=== PATIENT | female | born 1985 | race Caucasian/White ===

== ENCOUNTER 2019-08-01 19:27 | Emergency (ER) | payer BC, OTHER ==
--- NOTE | 2019-08-01 20:14 | EDM.PDOC ---
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 So far has been uncomplicated - she states she had an normal early ultrasound, and also a normal bedside u/s at 10 weeks. This evening she noticed blood in her underwear when she got home from work around an hour ago. Doesn't know if she's continued to bleed. No cramping. No provoking factor. No trauma. Otherwise feels well. No prior bleeding in this . - Related Data Allergies Allergy/AdvReac Type Severity Reaction Status Date / Time No Known Allergies Allergy Verified 08/01/19 19:36 Home Meds: Home Meds . [No Known Home Meds] 08/01/19 [History] Past Medical History - Past Health History Medical/Surgical History: Denies Medical/Surgical History - Past Surgical History HEENT Surgical History: Reports: Tonsillectomy Social & Family History - Family History Family Medical History: Noncontributory - Tobacco Use Smoking Status *Q: Never Smoker - Caffeine Use Caffeine Use: Reports: Soda - Recreational Drug Use Recreational Drug Use: No ED ROS GENERAL - Review of Systems Review Of Systems: See Below Constitutional: Denies: Fever HEENT: Reports: No Symptoms Respiratory: Denies: Shortness of Breath Cardiovascular: Denies: Chest Pain Endocrine: Reports: No Symptoms GI/Abdominal: Denies: Abdominal Pain : Denies: Dysuria Musculoskeletal: Reports: No Symptoms Skin: Reports: No Symptoms Neurological: Reports: No Symptoms Psychiatric: Reports: No Symptoms ED EXAM - Physical Exam Exam: See Below Exam Limited By: No Limitations General Appearance: Alert, WD/WN, No Apparent Distress Eye Exam: Bilateral Eye: Normal Inspection Ears: Normal External Exam Nose: Normal Inspection Throat/Mouth: Normal Inspection, Normal Oropharynx, Normal Voice Head: Atraumatic, Normocephalic Neck: Normal Inspection Respiratory/Chest: No Respiratory Distress, Lungs Clear, Normal Breath Sounds Cardiovascular: Normal Peripheral Pulses, Regular Rate, Rhythm GI/Abdominal Exam: Soft, Non-Tender, No Distention. No: Rebound (Female) Exam: Vaginal Bleeding, Other (cervix closed, small amount of dark blood in the vault, no active bleeding ). No: Cervical Dilatation Heart Tones: Present Heart Tones per Min: 164 Back Exam: Normal Inspection Extremities: Normal Inspection Neurological: Alert, Oriented, Normal Cognition Psychiatric: Normal Affect, Normal Mood Skin Exam: Warm, Dry, Intact, Normal Color, No Rash Course - Vital Signs Last Recorded V/S: Last Vital Signs Temp 36.9 C 08/01/19 19:34 Pulse 76 08/01/19 19:34 Resp 16 08/01/19 19:34 BP 136/77 08/01/19 19:34 Pulse Ox 96 08/01/19 19:34 - Orders/Labs/Meds Orders: Active Orders 24 hr Category Date Time Status Pelvic Exam, Set Up [RC] ASDIRECTED Care 08/01/19 20:05 Active PATIENT RETYPE [BBK] Routine Lab 08/01/19 21:24 Ordered Labs: Laboratory Tests 08/01/19 08/01/19 08/01/19 Range/Units 20:12 20:12 20:12 WBC 9.18 (3.98-10.04) K/mm3 RBC 4.02 (3.98-5.22) M/mm3 Hgb 11.0 L (11.2-15.7) gm/dl Hct 32.5 L (34.1-44.9) % MCV 80.8 (79.4-94.8) fl MCH 27.4 (25.6-32.2) pg MCHC 33.8 (32.2-35.5) g/dl RDW Std Deviation 45.1 (36.4-46.3) fL Plt Count 276 (182-369) K/mm3 MPV 9.6 (9.4-12.3) fl Neut % (Auto) 66.3 (34.0-71.1) % Lymph % (Auto) 25.7 (19.3-51.7) % Lee % (Auto) 6.3 (4.7-12.5) % Eos % (Auto) 1.5 (0.7-5.8) Baso % (Auto) 0.2 (0.1-1.2) % Neut # (Auto) 6.08 (1.56-6.13) K/mm3 Lymph # (Auto) 2.36 (1.18-3.74) K/mm3 Lee # (Auto) 0.58 H (0.24-0.36) K/mm3 Eos # (Auto) 0.14 (0.04-0.36) K/mm3 Baso # (Auto) 0.02 (0.01-0.08) K/mm3 HCG, Quant 180231.0 mIU/mL Blood Type O POSITIVE Gel Antibody Screen Negative - Re-Assessments/Exams Free Text/Narrative Re-Assessment/Exam: 08/01/19 21:49 U/S shows single itrauterine fetus measuring 14 wks 1 day. No clear etiology for bleeding. Pelvic exam shows closed cervix. HGC normal for stage of . Had extensive discussion with patient re: possibilities including normal vs. possible threatened . She was able to show me her online chart documenting Rh+ blood type. Her bleeding her was mild. Since it is Sunday evening, encouraged her to return for any concerning symptoms such as significant pain or heavy bleeding, and to f/u withDr. Raymond on Sunday. She understood. Departure - Departure Time of Disposition: 21:53 Disposition: Home, Self-Care 01 Clinical Impression: Vaginal bleeding affecting early - Discharge Information Referrals: Tala Raymond MD [Primary Care Provider] - Forms: ED Department Discharge Additional Instructions: 1. Follow up with your counter roller on Sunday 2. Return to the ED at any time over the weekend if you have very heavy bleeding or significant pain or any other concerning symptoms - My Orders Last 24 Hours: My Active Orders 08/01/19 20:05 Pelvic Exam, Set Up [RC] ASDIRECTED 08/01/19 21:24 PATIENT RETYPE [BBK] Routine - Assessment/Plan Last 24 Hours: My Active Orders 08/01/19 20:05 Pelvic Exam, Set Up [RC] ASDIRECTED 08/01/19 21:24 PATIENT RETYPE [BBK] Routine
--- NOTE | 2019-08-01 21:17 | US ---
Addendum: Head circumference measurement shows a voice recognition error. On the original report it states 19.75 cm which is incorrect and is 9.75 cm. Date given by head circumference remains the same. --- Addendum1 above dictated on [08/04/2019 15:22] by [Sheri Kam Hilton J.] --- --- Addendum1 above signed on [08/04/2019 15:23] by [Sheri Kam Hilton J.] --- --- Original report below dictated on [08/01/2019 21:14] by [Sheri Kam Hilton J.] --- --- Original report below signed on [08/01/2019 21:14] by [Sheri Kam, Vu Billingsley] --- Obstetrical ultrasound: Multiple real-time images were obtained. Comparison: No prior obstetrical imaging for current is available. Dates: Current ultrasound: [facility] 01/30/20, gestational age 14 weeks 0 days Single intrauterine fetus is seen. Amniotic fluid volume is normal. Small subserosal fibroid is seen anteriorly measuring 1.4 cm in greatest dimension. Amniotic fluid volume is normal. No subchorionic hemorrhage is appreciated. Maternal right ovary not visualized due to bowel gas. Maternal left ovary appears within normal limits. Measurements: BPD: 2.43 cm - 14 weeks 1 day Head circumference: 19.75 cm - 14 weeks 4 days Abdominal circumference: 7.50 cm - 14 weeks 0 days Femur length: 1.14 cm - 13 weeks 3 days Estimated weight: 83 g (0 lbs. 3 oz.), estimated weight at 19th percentile for age by current ultrasound Heart rate: 164 bpm Impression: 1. Single intrauterine fetus. Dates as noted above. 2. No etiology is seen for the patient's vaginal bleeding. 3. Small subserosal fibroid is noted which is felt to be incidental. Diagnostic code #2 --- Addendum1 signed ---
== END 2019-08-01 22:05 | disposition home or self-care (01) ==
LOC: JD.ED 19:27
DX: O20.9 Hemorrhage in early pregnancy, unspecified (principal); Z3A.13 13 weeks gestation of pregnancy
CPT/HCPCS: 36415; 76801; 76801-26; 84702; 85025; 86850; 86900; 86901; 99284-25

== ENCOUNTER 2019-12-14 22:08 | Inpatient (IN) | payer OTHER ==
[2019-12-14] MEDS ORDERED: Oxytocin 10 Units/1 ML SDV ONE (22:35)
[2019-12-14] MEDS ORDERED: Morphine 4 MG/ML Syringe IM ONE (22:40)
[2019-12-14] MEDS ORDERED: Morphine 4 MG/ML Syringe ONE ×2 (22:42→22:45)
[2019-12-14] MEDS ORDERED: Lidocaine 1% 50 ML MDV ONE (22:50)
[2019-12-14] MEDS ORDERED: Sodium Chloride 0.9% 10 ML ONE (23:00)
[2019-12-14] MEDS ORDERED: Nalbuphine 10 MG/ML Syringe IVPUSH PRN (23:09)
[2019-12-14] MEDS ORDERED: Sodium Chloride 0.9% 10 ML Syringe FLUSH PRN (23:09)
[2019-12-14] MEDS ORDERED: Lactated Ringers 1,000 ML IV SCH (23:15)
--- NOTE | 2019-12-14 23:19 | PCM.LDHP ---
L&D History of Present Illness - General Date of Service: 12/14/19 Admit Problem/Dx: Patient Status Order with Admit Dx/Problem 12/14/19 22:11 Patient Status [ADT] Routine Admission Diagnosis/Problem Admission Diagnosis/Problem Source of Information: Patient, Family - History of Present Illness Introduction:: 34 year old at 31w5 days presents in active labor completely dilated. Was seen last night for a UTI, had an amnisure that was negative and was closed, thick and high. Reports was not having any of this cramping last night but it started mid morning. She felt she was just having cramping from severe constipation. Tried an enema and pain continued to get worse with nausea and vomiting. Has had care with Dr. Raymond without significant complications. Dated by 8w ultrasound consistent with LMP. - Related Data Allergies/Adverse Reactions: Allergies Allergy/AdvReac Type Severity Reaction Status Date / Time No Known Allergies Allergy Verified 08/01/19 19:36 Home Medications: Home Meds . [No Known Home Meds] 08/01/19 [History] Past Medical History - Past Health History Medical/Surgical History: Denies Medical/Surgical History - Past Surgical History HEENT Surgical History: Reports: Tonsillectomy Social & Family History - Family History Family Medical History: Noncontributory - Caffeine Use Caffeine Use: Reports: Soda H&P Review of Systems - Review of Systems: Review Of Systems: See Below General: Reports: No Symptoms HEENT: Reports: No Symptoms Pulmonary: Reports: No Symptoms Cardiovascular: Reports: No Symptoms Gastrointestinal: Reports: No Symptoms Genitourinary: Reports: No Symptoms Musculoskeletal: Reports: No Symptoms Skin: Reports: No Symptoms Psychiatric: Reports: No Symptoms Neurological: Reports: No Symptoms Hematologic/Lymphatic: Reports: No Symptoms Immunologic: Reports: No Symptoms L&D Exam - Exam Exam: See Below - OB Specific Contraction Intensity: Strong Heart Rate (FHR) Variability: Moderate (6-25 bmp) Presentation: Vertex - Exam General: Alert, Oriented HEENT: PERRLA, Conjunctiva Clear, EACs Clear, EOMI, Hearing Intact, Mucosa Moist & [place], Nares Patent, Normal Nasal Septum, Posterior Pharynx Clear, TMs Clear Neck: Supple, Trachea Midline Lungs: Clear to Auscultation, Normal Respiratory Effort Cardiovascular: Regular Rate, Regular Rhythm GI/Abdominal Exam: Normal Bowel Sounds, Soft, Non-Tender, No Organomegaly, No Distention, No Abnormal Bruit, No Mass, Pelvis Stable Back Exam: Normal Inspection, Full Range of Motion Extremities: Normal Inspection, Normal Range of Motion, Non-Tender, No Pedal Edema, Normal Capillary Refill Skin: Warm, Dry, Intact Neurological: Cranial Nerves Intact, Reflexes Equal Bilateral Psychiatric: Alert, Normal Affect, Normal Mood Problem List Initiated/Reviewed/Updated: Yes Orders Last 24hrs: Active Orders 24 hr Category Date Time Status Patient Status [ADT] Routine ADT 12/14/19 22:11 Active Activity as Tolerated [RC] PFP Care 12/14/19 23:09 Ordered Communication Order [RC] ASDIRECTED Care 12/14/19 23:09 Ordered Heart Tones [RC] ASDIRECTED Care 12/14/19 23:12 Ordered Non Stress Test [RC] PER UNIT ROUTINE Care 12/14/19 22:11 Active Notify Provider [RC] PFP Care 12/14/19 23:09 Ordered Notify Provider [RC] PRN Care 12/14/19 23:09 Ordered Peripheral IV Care [RC] . DIRECTED Care 12/14/19 23:12 Ordered Vital Signs [RC] PER UNIT ROUTINE Care 12/14/19 22:11 Active Vital Signs [RC] PER UNIT ROUTINE Care 12/14/19 23:09 Ordered RAPID PLASMA REAGIN,RPR [CHEM] Routine Lab 12/14/19 23:09 Ordered Lactated Ringers [Ringers, Lactated] 1,000 ml Med 12/14/19 23:15 Ordered IV ASDIRECTED Nalbuphine [Nubain] Med 12/14/19 23:09 Ordered 10 mg IVPUSH Q2H PRN Sodium Chloride 0.9% [Saline Flush] Med 12/14/19 23:09 Ordered 10 ml FLUSH ASDIRECTED PRN Electronic Heart Tones Ext w TOCO [WOMSER] Oth 12/14/19 23:09 Ordered Routine Electronic Heart Tones Internal [WOMSER] Per Unit Oth 12/14/19 23:09 Ordered Routine Peripheral IV Insertion Adult [OM.PC] Routine Oth 12/14/19 23:09 Ordered Resuscitation Status Routine Resus Stat 12/14/19 22:11 Ordered Assessment/Plan Comment:: labor with rapid . At this time baby doing well and transport being arranged Patient will likely be discharged tomorrow afternoon or evening if she is doing well. Routine cares Continue antibiotics for UTI Support - patient desires to pump.
--- NOTE | 2019-12-14 23:23 | PCM.SN ---
- Free Text/Narrative Note: Stage I - Patient presented in active labor completely dilated. Stage II - of viable male, weight 2650g, APGARS 6/7 at 2234. Head delivered in controlled manner, body and shoulders followed without difficulty. Cord clamped and cut and baby taken to warmer. Positive cry. Stage III - of placenta with some manual extraction. Patient tolerated well. EBL 125. Cord blood collected. Small 2nd degree laceration repaired with 3 -0 monocryl
[2019-12-14] MEDS ORDERED: Docusate Sodium 100 MG Cap PO PRN (23:52)
[2019-12-15] MEDS: Ibuprofen 600 MG Tab PO PRN ×2 (01:00→07:01)
[2019-12-15] MEDS: Witch Hazel Medicated Pads 40/Jar TOP PRN ×2 (01:00→16:04)
[2019-12-15] MEDS: Benzocaine/Menthol 20%-0.5% Spray 56 GM Canister TOP PRN ×2 (01:01→16:05)
[2019-12-15] MEDS ORDERED: Oxytocin 10 Units/1 ML SDV IM ONE (01:03)
[2019-12-15] MEDS: Cephalexin 500 MG Cap PO SCH ×2 (06:13→12:19)
--- NOTE | 2019-12-15 08:43 | PCM.DCSUM1 ---
Discharge Summary - Hospital Course Diagnosis: Stroke: No - Discharge Data Discharge Date: 12/15/19 Discharge Disposition: Home, Self-Care 01 Condition: Good - Referral to Home Health Primary Care Physician: Tala Raymond MD - Patient Summary/Data Hospital Course: Doing well. Minimal pain. Plan discharge later today when patient ready. - Patient Instructions Diet: Usual Diet as Tolerated Activity: No Strenuous Activities Driving: Do Not Drive Showering/Bathing: May Shower Notify Provider of: Fever, Increased Pain, Swelling and Redness, Drainage, Nausea and/or Vomiting - Discharge Plan *PRESCRIPTION DRUG MONITORING PROGRAM REVIEWED*: No *COPY OF PRESCRIPTION DRUG MONITORING REPORT IN PATIENT MERCEDEZ: No Home Medications: Home Meds Pnv No.95/Ferrous Fum/Folic AC [Prenavite Tablet] 1 each PO DAILY 12/15/19 [ History] Referrals: Tala Raymond MD [Primary Care Provider] - (as schedule permits 2 weeks. [place]acken if needed for logistics.) - Discharge Summary/Plan Comment DC Time >30 min.: No - Patient Data Vitals - Most Recent: Last Vital Signs Temp 36.7 C 12/15/19 02:47 Pulse 96 12/15/19 02:47 Resp 15 12/15/19 02:47 BP 126/77 12/15/19 02:47 Pulse Ox 98 12/15/19 02:47 Weight - Most Recent: 130.181 kg Med Orders - Current: Current Medications Benzocaine/Menthol (Dermoplast Pain Relief [place]) 0 gm TOP ASDIRECTED PRN PRN Reason: Perineal Comfort Measure Last Admin: 12/15/19 01:01 Dose: 1 canister Cephalexin (Keflex) 500 mg PO Q6HR CORBY Last Admin: 12/15/19 06:13 Dose: 500 mg Docusate Sodium (Colace) 100 mg PO BID PRN PRN Reason: Constipation Ibuprofen (Motrin) 600 mg PO Q6H PRN PRN Reason: Mild pain or fever Last Admin: 12/15/19 07:01 Dose: 600 mg Witch Elsa (Tucks) 1 pad TOP ASDIRECTED PRN PRN Reason: Pain Last Admin: 12/15/19 01:00 Dose: 1 container Discontinued Medications Sodium Chloride (Normal Saline) Confirm Administered Dose 10 mls @ as directed .ROUTE .STK-MED ONE Stop: 12/14/19 23:01 Last Admin: 12/15/19 02:30 Dose: Not Given Lactated Ringer's (Ringers, Lactated) 1,000 mls @ 100 mls/hr IV ASDIRECTED CORBY Lidocaine HCl (Xylocaine 1%) Confirm Administered Dose 50 ml .ROUTE .STK-MED ONE Stop: 12/14/19 22:51 Last Admin: 12/14/19 22:50 Dose: 50 ml Morphine Sulfate (Morphine) Confirm Administered Dose 4 mg .ROUTE .STK-MED ONE Stop: 12/14/19 22:43 Last Admin: 12/15/19 02:31 Dose: Not Given Morphine Sulfate (Morphine) Confirm Administered Dose 4 mg .ROUTE .STK-MED ONE Stop: 12/14/19 22:46 Last Admin: 12/15/19 02:30 Dose: Not Given Morphine Sulfate (Morphine) 4 mg IM ONETIME ONE Stop: 12/14/19 22:41 Last Admin: 12/14/19 22:47 Dose: 4 mg Nalbuphine HCl (Nubain) 10 mg IVPUSH Q2H PRN PRN Reason: Pain Oxytocin (Pitocin) Confirm Administered Dose 10 unit .ROUTE .STK-MED ONE Stop: 12/14/19 22:36 Last Admin: 12/15/19 02:30 Dose: Not Given Oxytocin (Pitocin) 10 unit IM ONETIME ONE Stop: 12/15/19 01:04 Last Admin: 12/14/19 22:48 Dose: 10 unit Sodium Chloride (Saline Flush) 10 ml FLUSH ASDIRECTED PRN PRN Reason: Keep Vein Open
== END 2019-12-15 16:25 | disposition home or self-care (01) | DRG 806 ==
LOC: JD.OBCHECK 22:08 → JD.OB 22:08 → JD.OBCHECK 22:30 → JD.OB 22:33 → OBSVTOIN 23:30 → JD.OB 23:31
PROVIDERS: ADMIT Obstetrics & Gynecology; ATTEND Obstetrics & Gynecology
PROC: 10E0XZZ Delivery of Products of Conception, External Approach (ICD-10-PCS; principal; 2019-12-14)
PROC: 0KQM0ZZ Repair Perineum Muscle, Open Approach (ICD-10-PCS; 2019-12-14)
DX: O60.14X0 Preterm labor third trimester with preterm delivery third trimester, not applicable or unspecified (principal); O23.43 Unspecified infection of urinary tract in pregnancy, third trimester; Z37.0 Single live birth; O70.1 Second degree perineal laceration during delivery; Z3A.31 31 weeks gestation of pregnancy
CPT/HCPCS: 59025; 59409; A9270-GY; J2001; J2270; J2590

== ENCOUNTER 2021-09-25 15:57 | Emergency (ER) | payer BC, OTHER ==
--- NOTE | 2021-09-25 17:42 | EDM.PDOC ---
ED HPI GENERAL MEDICAL PROBLEM - General Chief Complaint: Genitourinary Problem Stated Complaint: UTI\17 WKS Time Seen by Provider: 09/25/21 16:35 Source of Information: Reports: Patient History Limitations: Reports: No Limitations - History of Present Illness INITIAL COMMENTS - FREE TEXT/NARRATIVE: 36-year-old female presents the emergency department today with request to have evaluation for urinary tract infection. Patient states she is 17 weeks with twins and states she has had urinary frequency and urgency increasing over the past week or so. She states she did have her routine checkup with her CERAMIC ENGINEER last week and had mentioned it to her at that time. CERAMIC ENGINEER did question her whether or not she may have a urinary tract infection and she did not b elieve so, so she was not evaluated. Patient denies any urinary symptoms such as burning or irritation. She denies any recent fever, chills or diarrhea. She states she has had nausea due to and morning sickness. - Related Data Allergies Allergy/AdvReac Type Severity Reaction Status Date / Time No Known Allergies Allergy Verified 09/25/21 16:37 Home Meds: Home Meds Pnv No.95/Ferrous Fum/Folic AC [Prenavite Tablet] 1 each PO DAILY 12/15/19 [History] Aspirin 81 mg PO DAILY 09/25/21 [History] Past Medical History - Past Health History Medical/Surgical History: Denies Medical/Surgical History Cardiovascular History: Reports: None Respiratory History: Reports: None Gastrointestinal History: Reports: None Genitourinary History: Reports: None CERAMIC ENGINEER History: Reports: Musculoskeletal History: Reports: None Neurological History: Reports: None Psychiatric History: Reports: None Endocrine/Metabolic History: Reports: None Hematologic History: Reports: Anemia Immunologic History: Reports: None Oncologic (Cancer) History: Reports: None Dermatologic History: Reports: None - Infectious Disease History Infectious Disease History: Reports: None - Past Surgical History Head Surgeries/Procedures: Reports: None HEENT Surgical History: Reports: Tonsillectomy Social & Family History - Family History Family Medical History: No Pertinent Family History - Tobacco Use Tobacco Use Status *Q: Never Tobacco User Second Hand Smoke Exposure: No - Caffeine Use Caffeine Use: Reports: Soda - Recreational Drug Use Recreational Drug Use: No ED ROS GENERAL - Review of Systems Review Of Systems: Comprehensive ROS is negative, except as noted in HPI. ED EXAM, RENAL/ - Physical Exam Exam: See Below Exam Limited By: No Limitations General Appearance: Alert, WD/WN, No Apparent Distress Ears: Normal External Exam, Hearing Grossly Normal Nose: Normal Inspection Throat/Mouth: Normal Inspection, Normal Lips, Normal Voice, No Airway Compromise Head: Atraumatic Neck: Normal Inspection, Supple Respiratory/Chest: No Respiratory Distress, No Accessory Muscle Use Cardiovascular: Normal Peripheral Pulses, Regular Rate, Rhythm GI/Abdominal: Normal Bowel Sounds, Soft, Non-Tender (Female) Exam: Deferred Rectal (Female) Exam: Deferred Back Exam: Normal Inspection Extremities: Normal Inspection Neurological: Alert, Oriented, Normal Cognition Psychiatric: Normal Affect, Normal Mood Skin Exam: Warm, Dry, Intact, Normal Color, No Rash Lymphatic: No Adenopathy Course - Vital Signs Text/Narrative:: Physical exam is essentially unremarkable. Will obtain a urinalysis with micro and culture if indicated. Last Recorded V/S: Last Vital Signs Temp 96.9 F 09/25/21 16:36 Pulse 67 09/25/21 16:36 Resp 20 09/25/21 16:36 BP 141/75 H 09/25/21 16:36 Pulse Ox 98 09/25/21 16:36 - Orders/Labs/Meds Labs: Laboratory Tests 09/25/21 Range/Units 16:39 Urine Color Yellow (Yellow) Urine Appearance Clear (Clear) Urine pH 7.0 (5.0-8.0) Ur Specific [place] 1.015 (1.005-1.030) Urine Protein Negative (Negative) Urine Glucose (UA) Negative (Negative) Urine Ketones Negative (Negative) Urine Occult Blood Negative (Negative) Urine Nitrite Negative (Negative) Urine Bilirubin Negative (Negative) Urine Urobilinogen 0.2 (0.2-1.0) Ur Leukocyte Esterase Trace H (Negative) Urine RBC 0-5 (0-5) /hpf Urine WBC 0-5 (0-5) /hpf Ur Squamous Epith Cells 5-10 H (0-5) /hpf Urine Bacteria Few (FEW) /hpf Urine Mucus Few (FEW) /hpf - Re-Assessments/Exams Free Text/Narrative Re-Assessment/Exam: 09/25/21 17:56 Urinalysis reveals nitrite negative, leukocyte Estrace trace, urine RBC 0-5, urine WBC 0-5, urine squamous epithelial cells 5-10 Discussed results with the patient. She states that she feels she may be paranoid due to the fact that she went into labor with her first due to a urinary tract infection. She states that she has been extra stressed out since finding out she was having twins with this . She does have a scheduled doctor's appointment with her furniture crater for September 28. She has been given strong return precautions. Departure - Departure Time of Disposition: 17:41 Disposition: Home, Self-Care 01 Condition: Good Clinical Impression: Urinary frequency - Discharge Information Referrals: Tala Raymond MD [Primary Care Provider] - Forms: ED Department Discharge Additional Instructions: You were seen in the emergency department today and evaluated for having a urinary tract infection. Urinalysis was completed and is unremarkable. Urinary frequency likely due to pressure on the bladder. Should you develop fever, chills, nausea, vomiting or diarrhea or burning with urination, recommend you be rechecked. Sepsis Event Note (ED) - Focused Exam Vital Signs: Vital Signs Temp Pulse Resp BP Pulse Ox 09/25/21 16:36 96.9 F 67 20 141/75 H 98
== END 2021-09-25 18:16 | disposition home or self-care (01) ==
LOC: JD.ED 15:57
DX: O99.891 Other specified diseases and conditions complicating pregnancy (principal); R35.0 Frequency of micturition; Z3A.17 17 weeks gestation of pregnancy
CPT/HCPCS: 81001; 99283